=== PATIENT | female | born 1960 | race Caucasian/White ===

== ENCOUNTER 2024-11-28 11:10 | Outpatient (CLI) | payer OTHER, SELFPAY ==
[2024-11-28] VITALS (7 sets, daily range): BP systolic 89–122; BP diastolic 53–67; PULSE 66–78; RESP 18; O2SAT 93–98; BMI 35.6
--- NOTE | 2024-11-28 11:14 | CA_ITS ---
APPROVED REPORT EXAM: Comprehensive 2D, Doppler, and color-flow Echocardiogram Operator Weapon Locating Radar: Shruti Romero RDCS Ht: 5 ft 5 in Wt: 214lbs BSA: 2.04 BP: 108/75 mmHg Indications: CP,ABN EKG,PRE OP EVAL M-Mode Dimensions RVDd 2.11 cm (0.9-2.6) LA Diam 2.32 cm (1.9-4.0) LVDd 5.20 cm (3.5-5.7) LVDs 3.66 cm (3.5-5.7) IVSd 0.91 cm (0.6-1.1) PWd 0.84 cm (0.6-1.1) EF (Teich) 56.30% FS 29.60% EDV (Teich) 129.50 mL TAPSE 1.26 (<1.7) ESV (Teich) 56.60 mL LV Diastology E Decel Time 283 (160-240 msec) E/A Ratio 0.8 Mitral Valve MV E Max Anibal. 38.0 (40-130 cm/s) MV A Velocity 50.0 (40-130 cm/s) E/A Ratio 0.75 MV PHT 83.0 ms Left Ventricle The left ventricle is normal size. The left ventricular systolic function is normal. The left ventricular ejection fraction is within the normal range. There is increased LV wall thickness. There is normal LV segmental wall motion. The left ventricular diastolic function is normal. LVEF is 60%. Right Ventricle Right ventricle is mildly dilated. The right ventricular systolic function is normal. Atria The left atrium size is normal. The right atrium size is normal. There is no Doppler evidence of interatrial shunt. Aortic Valve Aortic valve is mildly thickened. There is no aortic valvular stenosis. No aortic regurgitation is present. Mitral Valve The mitral valve is normal in structure. No evidence of mitral valve stenosis. Trace mitral regurgitation. Tricuspid Valve Tricuspid valve is grossly normal in structure and function. Trace tricuspid regurgitation. There is insufficient TR jet to estimate RVSP. Pulmonic Valve The pulmonary valve is normal in structure. Trace pulmonic regurgitation. Great Vessels The aortic root is normal in size. IVC is normal in size and collapses >50% with inspiration. Pericardium There is no pericardial effusion. Other Information Study Quality: Fair Conclusion Normal biventricular systolic function. Mild RV dilation. No significant valvular stenosis or regurgitation. Electronically signed by : Elyssa Anderson MD 11/28/2024 13:05:28
[2024-11-28] MEDS: METOPROLOL TARTRATE 50MG TABLET PO (12:05)
[2024-11-28] MEDS: IVABRADINE HCL 7.5MG TABLET PO (12:05)
[2024-11-28 12:22] LABS: Anion Gap 11.3 mEq/L (5-15); Blood Urea Nitrogen 14 mg/dl (7-17); Calcium 9.2 mg/dl (8.4-10.2); Carbon Dioxide 30 mmol/L (22.0-30.0); Chloride 101 mmol/L (98-107); Creatinine Clearance Estimated 87 mL/min (50-200); Estimated Glomerular Filt Rate 63 ml/min (>60); GFR (African American) 76 ML/MIN (>60); Glucose 89 mg/dl (74-100); Potassium 4.3 mmoL/L (3.5-5.1); Sodium 138 mmol/L (136-145)
[2024-11-28] MEDS: NITROGLYCERIN 0.4MG SL TABLET SL (12:45)
--- NOTE | 2024-11-28 13:00 | CT_ITS ---
APPROVED REPORT Transmission Calibration Engineer: CLINICAL INDICATION Chest Pain TECHNIQUE Image Acquisition: A 128 slice MDCT scanner ([email or web address] View) was used for data acquisition. A noncontrast coronary calcium scan was performed. A CT attenuation threshold of 130 Hounsfield units (HU) was used for the detection of calcium in contiguous voxels of 1 sq mm in area to be counted as individual lesions. Bolus tracking in the ascending aorta with a threshold of 180 HU was performed. Immediately afterwards, ECG synchronized cardiac CT was then performed from the cardiac base to apex using retrospective gating with ECG tube current modulation. A total of 85 mL of Isovue 370 mg/mL contrast medium was administered at 5 mL/sec followed by a saline flush using a biphasic injection protocol. A tube voltage of 120 KVp was used. The patient received the following medications prior to the cardiac CT. 50 mg of oral metoprolol 15 mg of oral ivabradine 0.8 mg of sublingual nitroglycerin The average heart rate at the time of acquisition was 61 bpm and regular. Image Reconstruction Transaxial images were reconstructed at 0.67 mm slide thickness. Data was reviewed interactively on an advanced workstation capable of 2 and 3-dimensional displays in all conventional reconstruction formats, including multiplanar reformations, maximum intensity projections, curved multiplanar reformations, and volume rendered reconstructions. When applicable, selected routine images describing the relevant coronary anatomy and pathology were saved and sent to PACS. Complications None Technical Quality Overall image quality was suboptimal due to significant motion. This may affect the diagnostic interpretation of the study findings. Coronary artery opacification was adequate. Total DLP (Dose-Length Product) is 1512.5 mGy-cm. The reported value represents the total of one or more individual components during the CT acquisition of this date and at this time, and as such, the same value may appear in more than one CT report depending on the interpreting/reporting physicians. COMPARISON None FINDINGS CT Coronary Calcium Scoring LMA (Left Main Artery) = 0 LAD (Left Anterior Descending) = 249 LCX (Left Coronary Circumflex) = 4 RCA (Right Coronary Artery) = 375 Total Calcium Score = 628 using the AJ-130 method. The observed calcium score of 628 is at 88th percentile for subjects of the same age, sex, and race/ethnicity. The interpretation of the calcium heart score is based on the following continuum*: 0 = no calcified plaque detected (risk of coronary artery disease is very low ??? less than 5%) 1-10 = calcium detected in extremely minimal levels (risk of coronary diseases is still low ??? less than 10%) 11-100 = mild levels of plaque detected with certainty (mild or minimal narrowing of heart arteries is likely) 101-400 = definite,at least moderate levels of plaque detected (relatively high risk of a heart attack within 3-5 years) >401-999 = extensive levels of plaque detected (high risk of heart attack, high levels of vascular disease are present, high likelihood of at least one significant coronary narrowing) *The calcium heart score quantifies the burden of coronary calcification/plaque in the coronary arteries. The calcium heart score is not able to evaluate the presence or burden of non-calcified (i.e. soft) plaque. There is calcification in the ascending, transverse, and descending thoracic aorta. Coronary CT Angiography The coronary arterial system is right dominant. Quantitative Stenosis Grading: Left Main (LM): The left main originates normally from the left sinus of Valsalva. The LM bifurcates into the left anterior descending artery and left circumflex artery. There is calcified plaque in the LM segment with no evidence of luminal stenosis. Left Anterior Descending (LAD) and Diagonal Branches: The LAD gives off 2 diagonal branch(es). There is mixed calcified/noncalcified plaque in the proximal and mid LAD segments with up to 70-90% luminal stenosis. There is no evidence of LAD-myocardial bridge. Left Circumflex (LCX) and Obtuse Marginals (OM): The LCX gives off 2 Obtuse Marginal (OM) branch(es). There is mixed calcified/noncalcified plaque in the proximal and mid LCx segments, with up to 50 to 70% luminal stenosis. Right Coronary Artery (RCA): The RCA originates normally from the right sinus of Valsalva. There is mixed calcified/noncalcified plaque along the trajectory of the RCA, with up to 50 to 70% luminal stenosis of the proximal RCA segment. Non-Coronary Cardiac Findings: Analysis of the left ventricular (LV) structure and function was performed after 3-D reconstruction of the LV from axial images, with user-corrected automatic contouring for assessment of LV volumes and user-defined reconstruction from oblique planes for measurement of 3-D cardiac structure and function. -The left ventricle systolic function is normal. -There is no left atrial appendage filling defect. Two right pulmonary veins and two left pulmonary veins drain normally into the left atrium. -No pericardial thickening or calcification. -Central and branch pulmonary arteries in the [id number] are unremarkable. -Thoracic aorta within the visualized thoracic aortic-branches in the [id number] is unremarkable. Extracardiac Structures No significant extra-cardiac findings. Note, however, that this study is focused on the cardiac findings. IMPRESSION -Image quality was suboptimal suboptimal due to significant motion. This may affect the diagnostic interpretation of the study findings. -Presence of coronary calcification with an Agatston score = 628 using the AJ-130 method. -The observed calcium score of 628 is at 88th percentile for subjects of the same age, sex, and race/ethnicity. - Multivessel atherosclerotic coronary disease with possible evidence of significant flow-limiting atherosclerosis of the proximal/mid LAD, proximal LCx, and proximal RCA. -CAD-RADS 4A. Management recommendations per ACC/AHA guidelines*, as clinically appropriate. *Recommendations: CAD RADS 0: Reassurance. Consider non-atherosclerotic causes of chest pain. CAD RADS 1: Consider non-atherosclerotic causes of chest pain. Consider preventive therapy and risk factor modification. CAD RADS 2: Consider non-atherosclerotic causes of chest pain. Consider preventive therapy and risk factor modification, particularly for patients with nonobstructive plaque in multiple segments. CAD RADS 3: Consider further functional testing. Consider symptom-guided anti-ischemic and preventive pharmacotherapy as well as risk factor modification per published guideline statements. CAD RADS 4A: Consider further functional testing or invasive coronary angiography with revascularization per published guideline statements. Consider symptom-guided anti-ischemic and preventive pharmacotherapy as well as risk factor modification per published guideline statements. CAD RADS 4B: Invasive coronary angiography recommended with revascularization per published guideline statements. Consider symptom-guided anti-ischemic and preventive pharmacotherapy as well as risk factor modification per published guideline statements. CAD RADS 5: Consider invasive angiography and/or viability assessment with revascularization per published guideline statements. Consider symptom-guided anti-ischemic and preventive pharmacotherapy as well as risk factor modification per published guideline statements. CRITICAL RESULT None COMMUNICATION Per this written report The coronary and cardiac findings of this CCTA were reviewed, reported, and signed by Zen Anderson MD (English Horn Player) Conclusion Electronically signed by : Elyssa Anderson MD 11/29/2024 13:34:15
[2024-11-28] MEDS: SODIUM CHLORIDE 0.9% 10ML SYR (RAD ONLY) 10 ML IV (13:05)
[2024-11-28] MEDS: 0.9 % SODIUM CHLORIDE 50 ML VIAL IV (13:05)
[2024-11-28] MEDS: IOPAMIDOL-370 (76%);100ML BOTTLE 85 ML IV (13:05)
== END 2024-11-28 23:59 | disposition home or self-care (01) ==
PROVIDERS: PCP Nurse Practitioner; Visit Provider Physician Assistant
DX: R07.89 Other chest pain (principal); I25.84 Coronary atherosclerosis due to calcified coronary lesion; Z87.891 Personal history of nicotine dependence
CPT/HCPCS: 75574; 80048; 93306; Q9967

== ENCOUNTER 2024-12-06 07:45 | Day surgery (SDC) | payer OTHER, SELFPAY ==
[2024-12-06] VITALS (13 sets, daily range): BP systolic 99–124; BP diastolic 48–75; PULSE 65–96; RESP 14–20; TEMP 36.6; O2SAT 94–98; BMI 36.8
--- NOTE | 2024-12-06 07:12 | IR_ITS ---
APPROVED REPORT Patient Location: Outpatient PROCEDURES Left heart catheterization Left ventriculogram Selective coronary angiogram Drug-eluting stent deployment to the mid LAD INDICATION Angina pectoris, Coronary artery disease, Abnormal CCTA Informed consent was obtained prior to the procedure. COMPLICATIONS NONE Estimated Blood Loss: LESS THAN 10 ML TECHNIQUE One percent lidocaine used to anesthetize the right anterior aspect of the wrist. The right radial artery was accessed via the Seldinger technique. A 6 Spanish sheath was placed in the right radial artery. 2.5 mg of Verapamil, 800 mcg of nitroglycerin, 1mg Lidocaine and 5000 U Heparin were given through the arterial sheath. The 6 Spanish JL 3 guide catheter was also used to perform left heart catheterization, left ventriculogram and selective coronary angiogram. At the end of the diagnostic angiogram therapeutic Was administered giving a therapeutic ACT and the guide catheters placed in the left main artery followed by Choice PT extra-support wire placed distally in the LAD. A 2.75 x 15 mm [place] frontier stent was deployed immediately after the first septal powdered sugar supervisor and first diagonal artery and deployed at 15 sandhya reducing the stenosis to 0%. DOUGLAS-3 flow was present before and after the procedure. At the end the procedure the apparatus was removed the sheath was removed hemostasis was achieved using TR banding patient was transferred to the postop putting in stable condition ANGIOGRAPHIC RESULTS The left main artery Normal The left anterior descending artery Proximally normal with a mid vessel concentric 70% stenosis The circumflex artery Small nondominant with mild 10% luminal irregularities The right coronary artery Large and dominant with a proximal 30 to 40% stenosis and a distal concentric 30 to 40% stenosis The [place] ventriculogram reveals Normal 65% The left ventricular end-diastolic pressure Elevated at 25 mmHg IMPRESSION Severe mid LAD disease as described above Successful stenting of the mid LAD severe disease reduced to 0% with 1 drug-eluting stent Moderate disease in the proximal and distal dominant right coronary artery as described above Normal ejection fraction Moderate to severe elevated LVEDP PLAN 1. Effient and aspirin 2. LDL less than 55 to be achieved with high intensity statin 3. Avoidance of tobacco products 4. Risk factor modification 5. Cardiac rehabilitation 6. Treatment of diastolic dysfunction 7. Recommend sleep study Electronically signed by : Yvon Holden MD 12/06/2024 10:20:18
[2024-12-06 08:24] LABS: Basophils # 0.1 K/mm3 (0-0.2); Basophils % 0.5 % (0.1-2.0); Eosinophils # 0.3 K/mm3 (0.0-0.4); Eosinophils % 2.4 % (0.1-12.0); Hematocrit 39.1 % (37.0-47.0); Hemoglobin 13.3 g/dL (12.2-16.2); Lymphocytes # 3.3 K/mm3 (0.7-4.5); Lymphocytes % 25.5 % (10-50); Mean Corpuscular Hemoglobin 31.1 pg (27.0-31.2); Mean Corpuscular Volume 91.4 fl (81-99); Mean Platelet Volume 9.2 fl (7.4-10.4); Monocytes # 0.8 K/mm3 (0.1-1.0); Monocytes % 6.5 % (1.7-9.3); Neutrophils # 8.3 K/mm3 (1.8-7.8); Neutrophils % 64.6 % (37.0-80.0); Nucleated Red Blood Cells # 0 10^3/uL; Nucleated Red Blood Cells % 0 %; Platelet Count 314 K/mm3 (142-424); Red Blood Count 4.28 M/mm3 (4.20-5.40); Red Cell Distribution Width 12.9 % (11.5-17.5); Red Cell Distribution Width-SD 42.4 fL; White Blood Count 12.8 K/mm3 (4.8-10.8)
[2024-12-06 08:33] LABS: Chloride 103 mmol/L (98-107); Potassium 4.3 mmoL/L (3.5-5.1); Sodium 140 mmol/L (136-145)
[2024-12-06 08:36] LABS: Blood Urea Nitrogen 15 mg/dl (7-17); Creatinine Clearance Estimated 87 mL/min (50-200); Estimated Glomerular Filt Rate 72 ml/min (>60); GFR (African American) 87 ML/MIN (>60)
[2024-12-06 08:37] LABS: Anion Gap 12.3 mEq/L (5-15); Calcium 9.6 mg/dl (8.4-10.2); Carbon Dioxide 29 mmol/L (22.0-30.0); Glucose 100 mg/dl (74-100)
[2024-12-06] MEDS: HEPARIN 1,000 UNITS/ML 10ML VIAL (CATH LAB) 5000 UNIT IV (09:43)
[2024-12-06] MEDS: VERAPAMIL 2.5MG/ML 2ML VIAL 2.5 MG IV (09:44)
[2024-12-06] MEDS: LIDOCAINE 1% 10ML MDV 10 ML IJ (09:44)
[2024-12-06] MEDS: 0.9 % SODIUM CHLORIDE 500 ML 25 ML IV (09:45)
[2024-12-06] MEDS: HEPARIN 1,000 UNITS/500ML NS (CATH LAB) 3000 UNIT IV (09:45)
[2024-12-06] MEDS: diphenhydrAMINE 50MG/ML VIAL 50 MG IV (09:45)
[2024-12-06] MEDS: NITROGLYCERIN 800MCG/8ML SYR (CATH LAB) 800 MCG IA (09:49)
[2024-12-06] MEDS: MIDAZOLAM HCL 1MG/ML 5ML VIAL 1 MG IV (10:19)
[2024-12-06] MEDS: FENTANYL 100MCG/2ML VIAL 50 MCG IV (10:19)
[2024-12-06] MEDS: PRASUGREL 10MG TAB 60 MG PO (10:32)
--- NOTE | 2024-12-06 13:35 | SUR.PHASEII ---
Per Clinic pharmacy-unable to utilize meds to meds due to patients insurance type.
[2024-12-06] MEDS: IOPAMIDOL-370 (76%);100ML BOTTLE 85 ML IV (13:45)
[2024-12-06 14:07] LABS: CATHL Activated Clotting Time > 400 SEC (74-125)
== END 2024-12-06 13:43 | disposition home or self-care (01) ==
PROVIDERS: PCP Nurse Practitioner; Visit Provider Internal Medicine
DX: I25.118 Atherosclerotic heart disease of native coronary artery with other forms of angina pectoris (principal); R94.31 Abnormal electrocardiogram [ECG] [EKG]; Z88.8 Allergy status to other drugs, medicaments and biological substances; Z79.899 Other long term (current) drug therapy; Z79.82 Long term (current) use of aspirin; Z82.49 Family history of ischemic heart disease and other diseases of the circulatory system; E78.5 Hyperlipidemia, unspecified; E66.812 Obesity, class 2; Z68.36 Body mass index [BMI] 36.0-36.9, adult; Z87.891 Personal history of nicotine dependence; I10 Essential (primary) hypertension; I77.1 Stricture of artery
CPT/HCPCS: 80048; 85025; 85347; 92928; 93458; 99152; C1725; C1769; C1874; C9600; J1200; J1644; J3010; Q9967

== ENCOUNTER 2024-12-13 10:48 | Outpatient (CLI) | payer OTHER, SELFPAY ==
[2024-12-13 11:13] LABS: Basophils # 0.1 K/mm3 (0-0.2); Basophils % 0.4 % (0.1-2.0); Eosinophils # 0.3 Kmm3 (0.0-0.4); Eosinophils % 2.8 % (0.1-12.0); Hematocrit 38.1 % (37.0-47.0); Hemoglobin 12.4 g/dL (12.2-16.2); Lymphocytes # 2.9 K/mm3 (0.7-4.5); Lymphocytes % 23.8 % (10-50); Mean Corpuscular HGB Conc 32.5 g/dL (31.8-35.4); Mean Platelet Volume 9.4 fl (7.4-10.4); Monocytes # 0.8 K/mm3 (0.1-1.0); Monocytes % 6.4 % (1.7-9.3); Neutrophils # 7.9 K/mm3 (1.8-7.8); Neutrophils % 66.1 % (37.0-80.0); Nucleated Red Blood Cells # 0 10^3/uL; Nucleated Red Blood Cells % 0 %; Platelet Count 284 K/mm3 (142-424); Red Blood Count 4.14 M/mm3 (4.20-5.40); Red Cell Distribution Width 12.7 % (11.5-17.5); Red Cell Distribution Width-SD 42.6 fL
[2024-12-13 11:32] LABS: Anion Gap 6.5 mEq/L (5-15); Blood Urea Nitrogen 13 mg/dl (7-17); Calcium 9.2 mg/dl (8.4-10.2); Carbon Dioxide 33 mmol/L (22.0-30.0); Chloride 103 mmol/L (98-107); Estimated Glomerular Filt Rate 101 ml/min (>60); GFR (African American) 122 ML/MIN (>60); Glucose 97 mg/dl (74-100); Potassium 4.5 mmoL/L (3.5-5.1); Sodium 138 mmol/L (136-145)
== END 2024-12-13 23:59 | disposition home or self-care (01) ==
LOC: LAB 10:49
PROVIDERS: PCP Nurse Practitioner; Visit Provider Internal Medicine
DX: Z95.5 Presence of coronary angioplasty implant and graft (principal)
CPT/HCPCS: 36415; 80048; 85025